=== PATIENT | male | born 1960 | race Two or more races ===

== ENCOUNTER 2024-07-05 12:49 | Emergency (ER) | payer OTHER ==
[~2024-07-05] VITALS: Ht 175.3 cm; Wt 77.1 kg
[2024-07-05] MEDS ORDERED: NORVASC10 MG PO (13:54)
[2024-07-05] MEDS ORDERED: HYDROCHLOROTHIA25 MG PO (13:55)
[2024-07-05 18:37] LABS: HEMATOCRIT 44.5 % (39.0-48.0); HEMOGLOBIN 15.6 g/dL (13-16.00); MEAN CELL VOLUME 88.9 fL (80.0-100.00); MEAN CORPUSCULAR HEMOGLOBIN 31.1 pg (27.00-32.0); PLATELET COUNT 218 K/uL (150-450); RED CELL DISTRIBUTION WIDTH 13.3 % (11.5-14.5)
[2024-07-05 18:56] LABS: INR 1.01; PARTIAL THROMBOPLASTIN TIME 30.3 SECONDS (22.0-34.0)
[2024-07-05 19:00] LABS: ALBUMIN 4.1 gm/dL (3.4-5.0); BILIRUBIN TOTAL 0.62 mg/dL (0.3-1.2); CALCIUM 9.6 mg/dL (8.5-10.1); CREATININE SERUM 1.01 mg/dL (0.70-1.30); GFR 74.61; GLOBULINA 3.8 G/DL (2.4-3.5); POTASSIUM 3.51 mEq/L (3.5-5.1); TOTAL PROTEIN 7.9 gm/dL (6.4-8.2)
== END 2024-07-05 19:49 | disposition home or self-care (01) ==
LOC: ER 12:51
PROVIDERS: Emergency Medicine
DX: R60.0 Localized edema (principal); I10 Essential (primary) hypertension; Z88.0 Allergy status to penicillin